=== PATIENT | female | born 2000 | race Caucasian/White ===

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

== ENCOUNTER 2019-02-17 20:28 | Emergency (ER) | payer OTHER ==
[~2019-02-17] VITALS: Ht 149.9 cm; Wt 46.7 kg
[2019-02-17 20:40] VITALS: Ht 149.9 cm; Wt 46.7 kg
[2019-02-17 22:16] VITALS: BP 106/84
== END 2019-02-17 22:16 | disposition home or self-care (01) ==
LOC: ED 20:28
DX: N64.4 Mastodynia (principal)

== ENCOUNTER 2019-11-08 22:20 | Emergency (ER) | payer OTHER ==
[~2019-11-08] VITALS: Ht 152.4 cm; Wt 54.0 kg
[2019-11-08 22:26] VITALS: Ht 152.4 cm; Wt 54.0 kg
[2019-11-08 22:55] VITALS: BP 106/64
== END 2019-11-08 22:55 | disposition home or self-care (01) ==
LOC: ED 22:20
DX: O99.343 Other mental disorders complicating pregnancy, third trimester (principal); F41.9 Anxiety disorder, unspecified; Z3A.29 29 weeks gestation of pregnancy